=== PATIENT | female | born 1970 | race Caucasian/White ===

== ENCOUNTER → 2020-11-04 07:46 | Outpatient (CLI) | payer BC, SELFPAY ==
[2020-11-04 19:22] LABS: SARS-CoV-2 RNA PCR Negative
== END ==
PROVIDERS: Visit Provider Obstetrics & Gynecology
DX: Z01.812 Encounter for preprocedural laboratory examination (principal); Z20.822 Contact with and (suspected) exposure to COVID-19
CPT/HCPCS: C9803; U0003; U0005

== ENCOUNTER 2020-11-04 09:18 | Outpatient (CLI) | payer BC, SELFPAY ==
--- NOTE | 2020-11-04 09:15 | ECG_ITS ---
Measurements Intervals [place] Rate: 76 P: 71 [place]: 133 QRS: 49 QRSD: 92 T: 41 QT: 364 QTc: 410 Interpretive Statements SINUS RHYTHM NORMAL ECG Electronically Signed On 11-04-2020 10:08:24 CDT by Jayson Donaldson D.O.
[2020-11-04 10:02] LABS: Hematocrit 41.7 % (37.0-47.0); Hemoglobin 14.3 g/dL (12.0-15.0); Mean Corpuscular HGB Conc 34.3 g/dl (32-36); Mean Corpuscular Hemoglobin 33.1 pg (26-34); Mean Corpuscular Volume 96.5 fl (80-100); Mean Platelet Volume 9.6 fl (7.4-10.4); Platelet Count Result 366 k/mm3 (150-375); Red Blood Count 4.32 M/mm3 (4.2-5.4); Red Cell Distribution Width 13.1 % (11.5-14.5); White Blood Count 9.8 K/mm3 (4.5-10.0)
== END 2020-11-04 09:19 | disposition home or self-care (01) ==
PROVIDERS: PCP Internal Medicine; Visit Provider Obstetrics & Gynecology
DX: N93.9 Abnormal uterine and vaginal bleeding, unspecified (principal); I10 Essential (primary) hypertension; Z01.818 Encounter for other preprocedural examination
CPT/HCPCS: 36415; 85027; 93005

== ENCOUNTER 2020-11-07 01:26 | Day surgery (SDC) | payer BC, SELFPAY ==
[2020-11-07] VITALS (8 sets, daily range): BP systolic 132–150; BP diastolic 74–92; PULSE 75–111; RESP 10–20; TEMP 36.2–36.6; O2SAT 96–100
--- NOTE | 2020-11-07 11:27 | WPDHPUPDATE1 ---
History and Physical Update Update Date/Time: 11/07/20 11:27 History and Physical has been reviewed, including an updated exam of the patient. There are NO changes in the patient's condition. Risks, benefits, and alternatives have been discussed and questions answered. Patient agrees to proceed with procedure.
[2020-11-07] MEDS: ACETAMINOPHEN 500 MG TABLET 1000 MG PO (11:47)
[2020-11-07] MEDS: LACTATED RINGERS 1,000 ML 30 ML IV CONT ×3 (11:50→15:39)
[2020-11-07] MEDS: KETOROLAC 15 MG/ML VIAL (*BKC) IV PUSH (11:53)
--- NOTE | 2020-11-07 12:16 | P.PNAN_ITS ---
Anes - Initial Pre Proc Eval Procedure: Operation Date: 11/07/20 13:00 Proposed Procedures p Laparoscopic Bilateral Tubal Sterilization with Fulgeration, - Adrienne Barnard MD s Hysteroscopy, Suzy Endometrial Ablation - Adrienne Barnard MD Date/Time: 11/07/20 12:16 Surgeon: Adrienne Barnard MD Pre Op Diagnosis: desires sterilization, abn uterine bleeding Patient Data Age: 50 Gender: F Height: 1.63 m Weight: 79.4 kg Allergies Allergy/AdvReac Type Severity Reaction Status Date / Time meperidine [From Demerol] Allergy Severe HIVES/VOMIT Verified 11/07/20 10:59 ING Home Medications Medication Instructions Recorded Confirmed Type amitriptyline 50 mg PO HS 11/02/20 11/07/20 History bupropion HCl 300 mg PO QAM 11/02/20 11/07/20 History cholecalciferol (vitamin D3) 50 mcg PO DAILY 11/02/20 11/07/20 History lisinopril 20 mg PO DAILY 11/02/20 11/07/20 History montelukast 10 mg PO PRN PRN 11/02/20 11/07/20 History sertraline 50 mg PO QAM 11/02/20 11/07/20 History sumatriptan succinate 100 mg PO PRN PRN 11/02/20 11/07/20 History Patient hx anesthesia problems: none Family hx anesthesia problems: none [facility] Past Medical History Medical History (Updated 11/07/20 @ 08:01 by Liborio Russell DO) Anxiety Depression Hypertension Migraine Surgical History Surgical History (Updated 11/07/20 @ 08:01 by Liborio Russell DO) History of appendectomy History of tonsillectomy S/P arthroscopic knee surgery Social History Social History Smoking packs per day: 0.5 Smoking cigarettes per day: 10.0 Years smoked: 25 Smoking pack-years: 12.50 Smoking status: Current every day smoker Alcohol intake: current Drinks per week: 2 Living arrangements: with family Spiritual care concerns: No Anes - Eval Final PreProcedure Day of Procedure 11/07/20 12:16 Patient weight: obese Heart: regular rate and rhythm Lungs: clear to auscultation and normal air movement Airway: Mallampati scale class II Neurological: alert and oriented Last oral intake: >/= 8 hours ASA classification: III Emergent: no Anesthetic plan: proceed Anesthesia type and monitoring: general ETT and standard monitoring Informed Consent: The patient's anesthetic plan and its attendant risks and benefits were discussed with the patient/family/POA. Questions were solicited and answers provided to the satisfaction of the patient/family/POA.
[2020-11-07] MEDS: BUPIVACAINE/EPINEPHRINE 0.5% 10 ML VIAL 20 ML INFILTRATE (14:23)
--- NOTE | 2020-11-07 14:46 | PM.PROC ---
Procedure Note - Detailed Date of procedure: 11/07/20 Pre-op diagnosis: desires sterilization, abn uterine bleeding Post-op diagnosis: same Procedure performed: laparoscopic bilateral tubal sterilization with bipolar cautery, hysteroscopy with endometrial ablation Description of procedure: The patientwas taken to the operating room where general anesthesia was found to be adequate. She was then prepared and draped in the dorsal lithotomy position in [facility]. A speculum was used to visualize the cervix and a single toothed tenaculum placed on the anterior lip. The uterus was sounded to 8cm and cervix measured 3cm so cavity length 5cm. OOTU uterine manipulator placed and affixed to the tenaculum. Arreguin catheter inserted. Attnetion was then turned to the umbilicus which was injected with 0.5% marcaine with epinephrine, the infraumbilical fold incised with a scalpel and veres needle used for entry into the peritoneal cavity. This took 3 attempts before saline drop test confirmed peritoneal entry. CO2 insufflation then used to bring peritoneal cavity pressure up, but once to 10mmHg, her abdominal wall muscle contracted and the needle rocked so the veres was quickly removed until the anesthesia could make her more relaxed. So the veres was again inserted easily and saline drop test confirmed intraperitoneal entry and CO2 sufflation continued to 15mmHg. The 5mm scope was inserted with optical entry using a 5mm port. There did not appear to be any injurty to surrounding organs and the cavity was free of any adhesions. The patient was then placed in Trendelenberg and the uterus elevated. A suprapubic port was then placed with direct visualization by injecting the skin with 0.5% marcaine with epinephrine, incsing the skin with a scalpel and placing the 5mm port with direct visualization. The Kleppenger was used to cauterize the Right fallopian tube first along the mid and distal portion of the tube sparing the fimbria and proximal tube. This was done along the tubal and paratubal tissue. Similarly the left was done as well. Images taken at the end of the procedure and this part of the procedure was compelted. So pneumoperitoneum was released and port sites removed and skin was closed with 4-0 monocryl in 2 interrupted stitches and covered with bandaids. Attention was then turned vaginally where the Thomas uterine maniupulator was removed and the hysteroscope with 0.9% saline for distension was inserted. The cavity was free of polyps and appeared bloody, but not signifcantly fluffy. The camera was removed and the Suzy was prepared. It was inserted and cavity assessment passed. The procedure began and went through its entire cycle for completion of ablation. The Suzy device was then removed and camera reinserted. Good effect throughout the endometrium noted. The camera then removed and the procedure was complete. Teneaculum was removed and silver nitrate applied to left tenaculum site for hemostasis. Arreguin catheter was removed as well as the speculum at the end of the case. All sponge lap and needle counts were correct Anesthesia: GETA Surgeon: Adrienne Barnard MD Estimated blood loss (mL): 20 Drains: No Packing: No Pathology: none sent Complications: None Condition: stable Disposition: PACU Findings: Normal fallopian tubes/ovaries/and uterus. No intraperitoneal adhesions
[2020-11-07] MEDS: fentaNYL CITRATE INJ (*CRX) 100 MCG/2 ML VIAL 25 MCG IV PUSH ×5 (14:53→15:22)
[2020-11-07] MEDS: oxyCODONE HCL (*CRX) 5 MG TAB IR PO (15:52)
== END 2020-11-07 16:42 | disposition home or self-care (01) ==
PROVIDERS: PCP Internal Medicine; Visit Provider Obstetrics & Gynecology
PROC: (CPT 58671; principal; 2020-11-07 13:00)
PROC: 0U5B8ZZ Destruction of Endometrium, Via Natural or Artificial Opening Endoscopic (ICD-10-PCS; CPT 58563; 2020-11-07 13:00)
DX: N93.9 Abnormal uterine and vaginal bleeding, unspecified (principal); Z30.2 Encounter for sterilization; I10 Essential (primary) hypertension; F41.8 Other specified anxiety disorders; F17.210 Nicotine dependence, cigarettes, uncomplicated; E66.9 Obesity, unspecified; Z68.29 Body mass index [BMI] 29.0-29.9, adult
CPT/HCPCS: 58563; 58670; 36415; 85027; 93005; A9270; C9803; J1100; J1885; J2250; J2405; J2704; J2710; J3010; J7120; U0003; U0005

== ENCOUNTER → 2021-01-17 09:18 | Outpatient (CLI) | payer BC, SELFPAY ==
--- NOTE | ~2021-01-17 | XR_ITS ---
XR sacroiliac joints min 3V DATE: 01/17/2021 09:37 INDICATION: Sacrococcygeal disorder TECHNIQUE: Frontal and bilateral oblique views COMPARISON: None FINDINGS: There is degenerative disease at the included L4-5 and L5-S1 interspaces. Normal alignment at the sacroiliac joints. There is mild degenerative change. No erosive change or an kylosis. The pubic symphysis is intact. IMPRESSION: Degenerative disc disease at L4-5 and L5-S1 Mild degenerative change at the sacroiliac joints; no erosive change or ankylosis Reviewed, dictated and finalized at [facility]. Reviewed, dictated and finalized at [facility]. IMPRESSION: Degenerative disc disease at L4-5 and L5-S1 Mild degenerative change at the sacroiliac joints; no erosive change or ankylos is
== END ==
PROVIDERS: PCP Internal Medicine; Visit Provider Nurse Practitioner Family
DX: M54.16 Radiculopathy, lumbar region (principal); M53.3 Sacrococcygeal disorders, not elsewhere classified; M51.36 Other intervertebral disc degeneration, lumbar region; M51.37 Other intervertebral disc degeneration, lumbosacral region
CPT/HCPCS: 72202